=== PATIENT | male | born 1955 | race Caucasian/White ===

== ENCOUNTER → 2018-05-16 | Day surgery (SDC) | payer BC ==
[~2018-05-16] MED LIST: ACET500T68 PO; ASPI-612 PO; CARV3.1210 PO; CARV6.2511 PO; CLOP75TA PO; DOCU100C53 PO; HYDROmorphone 2 MG/ML VIAL IV PRN; IV RINGERS,LACTATED 1000ML 1,000 ML IV SCH; LIDOCAINE 1% PF 2 ML VIAL. ID PRN; LIDOCAINE 2% PF 5 ML VIAL. ONE; LISI5TAB PO; MECL25TA3 PO; MORPHINE SULFATE 2 MG/ML VIAL. IV PRN; OMEP20CA10 PO; OMEP40CA5 PO; ONDANSETRON PF 4 MG/2 ML VIAL. IV PRN; PANT40TA3 PO; PROCHLORPERAZINE 10 MG/2 ML VIAL. IV PRN; PROPOFOL 20 ML IV ONE; SIMV20TA3 PO; fentaNYL PF VIAL 100 MCG/2 ML VIAL IV PRN
[2018-05-16 08:36] VITALS: BP 103/62
== END | disposition home or self-care (01) ==
LOC: SURG 06:55
PROVIDERS: ATTEND Internal Medicine Gastroenterology
DX: Z12.11 Encounter for screening for malignant neoplasm of colon (principal); K57.30 Diverticulosis of large intestine without perforation or abscess without bleeding; K64.0 First degree hemorrhoids; Z86.010 Personal history of colon polyps; I10 Essential (primary) hypertension; E78.5 Hyperlipidemia, unspecified; I25.10 Atherosclerotic heart disease of native coronary artery without angina pectoris; Z86.73 Personal history of transient ischemic attack (TIA), and cerebral infarction without residual deficits; Z72.89 Other problems related to lifestyle; Z79.899 Other long term (current) drug therapy; Z98.52 Vasectomy status; Z95.1 Presence of aortocoronary bypass graft; Z87.891 Personal history of nicotine dependence
CPT/HCPCS: 45378; J2001; J2704

== ENCOUNTER → 2018-05-23 | Outpatient (CLI) | payer OTHER ==
[2018-05-16 08:36] VITALS: BP 103/62
[~2018-05-23] MED LIST changes: -HYDROmorphone 2 MG/ML VIAL IV PRN; -IV RINGERS,LACTATED 1000ML 1,000 ML IV SCH; -LIDOCAINE 1% PF 2 ML VIAL. ID PRN; -LIDOCAINE 2% PF 5 ML VIAL. ONE; -MORPHINE SULFATE 2 MG/ML VIAL. IV PRN; -ONDANSETRON PF 4 MG/2 ML VIAL. IV PRN; -PROCHLORPERAZINE 10 MG/2 ML VIAL. IV PRN; -PROPOFOL 20 ML IV ONE; -fentaNYL PF VIAL 100 MCG/2 ML VIAL IV PRN
--- NOTE | 2018-05-24 08:26 | RAD ---
Examination: MRI of the left elbow without contrast HISTORY: History of left posterior elbow pain after fall COMPARISON: None available Technique: Multiplanar, multisequence MR imaging of the left elbow was performed without contrast. FINDINGS: Examination is very limited due to significant motion artifact which causes artifact. Grossly the attachment of the common extensor tendon, common flexor tendon appear intact. The ulnar collateral ligament ligament is not clearly evident but probably intact given no increased signal. The visualized radial collateral ligamentous complex including the lateral ulnar collateral ligament are likely intact. Minimal elbow joint effusion identified. The attachment of the triceps tendon to the olecranon processes grossly appears intact.. There is increased T2 signal identified in the distal biceps tendon at attachment to the radius likely partial thickness tear with a bicipitoradial bursa distention. The attachment of the brachialis tendon grossly appears intact. The ulnar nerve within the cubital tunnel grossly appears unremarkable. IMPRESSION: 1. Increased T2 signal identified in the distal biceps tendon at its radial attachment likely partial-thickness tear with bicipitoradial bursa distention. 2. Otherwise examination is very limited given significant artifact. Electronically signed by: Cruz Porras MD (05/24/2018 8:23 AM) [id number]
== END | disposition home or self-care (01) ==
LOC: MRI 14:51
PROVIDERS: ATTEND Family Medicine
DX: M25.462 Effusion, left knee (principal)
CPT/HCPCS: 73221

== ENCOUNTER → 2018-06-06 | Outpatient (CLI) | payer OTHER ==
[2018-05-16 08:36] VITALS: BP 103/62
--- NOTE | 2018-06-06 19:49 | RAD ---
MR#: [id number] Date of Study: 06/06/2018 Ordering Physician: DWAYNE DEGROOT, Referring Physician: DWAYNE DEGROOT, Tech: Ming Jimenez MBA, RDMS, RVT, RDCS, RTR APPROVED REPORT Patient Location: OUT-PATIENT Indications PAD VELOCITY AND DOPPLER WAVEFORM ANALYSIS RIGHT cm/secWaveformSeverity LEFT cm/secWaveform Severity dCFA 196.0BiphasicdCFA 180.0Monophasic Prof Fem Art. 38.0BiphasicProf Fem Art. 63.0Biphasic Fem Art Prox. OccludedFem Art Prox. 66.0Biphasic Fem Art Mid. OccludedFem Art Mid. 88.0Monophasic Fem Art Dist. OccludedFem Art Dist. 52.0Monophasic Pop Art(Fossa) OccludedPop Art(AK) 55.0Monophasic STRIKER OUT Prox. 77.0BiphasicPTA Prox. 53.0Monophasic STRIKER OUT Dist. 85.0BiphasicPTA Dist. 53.0Monophasic ZAC Prox. 76.0BiphasicATA Prox. 36.0Monophasic DPA 36BiphasicDPA 39Monophasic Image Findings Grayscale images of the right lower extent B arterial vessels reveals occlusion of the right SFA. The re is moderate diffuse atherosclerotic plaque. Mild elevation of the right common femoral arterial ve locities suggestive of more proximal stenosis. The superficial femoral artery and popliteal artery ap pear to be occluded. There is robust collateralization based on normal velocities in the posterior ti bial and anterior tibial vessels. The peroneal artery is not visualized and likely occluded. There is flow noted in the dorsalis pedis artery. Velocities again are mildly elevated in the left common femoral artery again suggestive of possible m ore proximal stenosis. Normal velocities are identified in the profunda, superficial femoral and popl iteal vessels although they are in a monophasic wave pattern suggestive of adventitial calcification. Below the knee the posterior tibial velocities are within normal limits. There is diminished anterio r tibial velocities suggestive of diffuse disease. The peroneal artery again is not visualized. Critical Notification Critical Value: No <Conclusion> 1. Right SFA and popliteal occlusion. 2. Two-vessel runoff below the knee bilaterally Signed by : Ranjith Yuan, Electronically Approved : 06/06/2018 19:49:04
--- NOTE | 2018-06-06 19:57 | RAD ---
MR#: [id number] Date of Study: 06/06/2018 Ordering Physician: DWAYNE DEGROOT, Referring Physician: DWAYNE DEGROOT, Tech: Ming Jimenez MBA, RDMS, RVT, RDCS, RTR APPROVED REPORT Patient Location: OUT-PATIENT Laterality:Bilateral Indications carotid artery disease Surgery/Intervention Endarterectomy: right Doppler Spectral Velocity Analysis Right Left pCCA 64/8 cm/spCCA 187/17 cm/s mCCA 75/2 cm/smCCA 112/22 cm/s dCCA 59/4 cm/sdCCA 97/22 cm/s Bulb 116/8 cm/sBulb 80/16 cm/s ECA 193/ cm/sECA 196/ cm/s pICA 8/-8 cm/spICA 95/26 cm/s Cam 24/-8 cm/smICA 117/37 cm/s dICA 21/-11 cm/sdICA 92/29 cm/s Vert. 88/ cm/sVert. 171/ cm/s Subcl. 75/ cm/sSubcl. 77/ cm/s ICA/CCA 0.32ICA/CCA 0.63 Findings Grayscale images of the right common carotid, external and internal carotid vessels reveals moderate diffuse atherosclerotic plaque. Spectral waveforms in the common carotid artery are within normal bras[place] its. Flow profile in the right internal carotid artery is suggestive of to and fro flow and severely diminished velocities. This may be related to significant obstructive disease versus more central pat hology such as severe aortic insufficiency although as this is not evident in the left common carotid vessels this may be more isolated right internal disease. There is likely greater than 50% stenosis involving the right external carotid artery. There does not appear to be any clear evidence of subcla vian steal as the vertebral velocity is antegrade and elevated again suggestive likely of greater ketan n 50% stenosis. On the left proximal common carotid artery velocities are elevated suggestive of approximately 50% st enosis. No significant flow limitation is noted in the internal carotid artery with overall 0 to less than 50% stenosis by velocity criteria. The left external carotid velocities are again elevated sugg estive greater than 50% stenosis. The vertebral artery velocities are again elevated suggestive of gr eater than 50% stenosis but there is normal antegrade flow. Critical Notification Critical Value: No <Conclusion> 1. Likely severe diffuse disease involving the right internal carotid artery based on to-and-fro flow and diminished velocities. 2. Likely greater than 50% stenosis involving the bilateral vertebral velocities. 3. No obvious subclavian steal noted or significant subclavian stenosis. 4. Recommend CT angiography of the head and neck vessels for further delineation of vascular anatomy. Signed by : Ranjith Yuan, Electronically Approved : 06/06/2018 19:57:14
== END | disposition home or self-care (01) ==
LOC: US 14:24
PROVIDERS: ATTEND Internal Medicine Cardiovascular Disease
DX: I70.208 Unspecified atherosclerosis of native arteries of extremities, other extremity (principal); I65.21 Occlusion and stenosis of right carotid artery; Z98.890 Other specified postprocedural states; Z87.891 Personal history of nicotine dependence
CPT/HCPCS: 93880; 93925

== ENCOUNTER 2019-01-14 02:34 | Emergency (ER) | payer OTHER ==
[~2019-01-14] VITALS: Ht 177.8 cm; Wt 101.6 kg
[~2019-01-14 02:34] MED LIST changes: +OMEP-229 PO; -OMEP20CA10 PO; +OMEP40CA45 PO; -OMEP40CA5 PO; -PANT40TA3 PO; +PANT40TA77 PO; +SIMV20TA18 PO; -SIMV20TA3 PO
[2019-01-14 02:51] VITALS: BP 159/101
--- NOTE | 2019-01-14 02:58 | PHYS DOC ---
Past Medical History Past Medical History: CAD, CVA, Hypertension Additional Past Medical Histor: brain tumor s/p radiation Past Surgical History: Coronary Bypass Surgery, Tonsillectomy, Other Additional Past Surgical Histo: Fusion C7, right leg graft, left arm graft Alcohol Use: None Drug Use: None Adult General Chief Complaint Chief Complaint: ABDOMINAL PAIN HPI HPI 63-year-old male presents to the emergency department with complaints of abdominal discomfort, he describes as gas. Similar situation one month ago he was seen in the office of his primary care physician's. Patient denies any fever, chills, diarrhea. States last, was normal. He got up around 1 AM states he took some simethicone at that time with no improvement. Given his continued pain he presented the ER for further evaluation. Nothing makes his pain worse, nothing makes his pain better. Review of Systems Review of Systems Constitutional: Denies fever or chills [] Respiratory: Denies cough or shortness of breath [] Cardiovascular: No additional information not addressed in HPI [] GI: + abdominal pain, nausea, no vomiting, bloody stools or diarrhea [] : Denies dysuria or hematuria [] Musculoskeletal: Denies back pain or joint pain [] All other systems were reviewed and found to be within normal limits, except as documented in this note. Current Medications Current Medications Current Medications Medications (Trade) Dose Ordered Sig/Ananth Start Time Stop Time Status Last Admin Dose Admin Dicyclomine HCl (Bentyl) 10 mg 1X ONCE 01/14/19 03:45 01/14/19 03:46 DC 01/14/19 03:49 10 MG Magnesium Citrate (Citroma) 296 ml 1X ONCE 01/14/19 03:45 01/14/19 03:46 DC 01/14/19 03:50 296 ML Allergies Allergies Allergies Coded Allergies Type Severity Reaction Last Updated Verified No Known Drug Allergies 05/16/18 No Physical Exam Physical Exam Constitutional: Well developed, well nourished, no acute distress, non-toxic appearance. [] HENT: Normocephalic, atraumatic, bilateral external ears normal, oropharynx m oist, no oral exudates, nose normal. [] Eyes: PERRLA, EOMI, conjunctiva normal, no discharge. [] Cardiovascular:Heart rate regular rhythm, no murmur [] Lungs & Thorax: Bilateral breath sounds clear to auscultation [] Abdomen: Bowel sounds normal, soft, mild distention, no significant tenderness on exam, no masses, no pulsatile masses. [] Skin: Warm, dry, no erythema, no rash. [] Back: No tenderness, no CVA tenderness. [] Extremities: No tenderness, bilateral lower ext edema [] Neurologic: Alert and oriented X 3, no focal deficits noted. [] Psychologic: Affect normal, judgement normal, mood normal. [] Current Patient Data Vital Signs Vital Signs Date Time Temp Pulse Resp B/P (MAP) Pulse Ox O2 Delivery O2 Flow Rate FiO2 01/14/19 02:51 97.8 76 16 159/101 (120) 99 Room Air 97.8 Lab Values Laboratory Tests Test 01/14/19 02:45 01/14/19 03:10 Urine Collection Type Unknown Urine Color Yellow Urine Clarity Clear Urine pH 6.5 Urine Specific [place] 1.020 Urine Protein Negative mg/dL (NEG-TRACE) Urine Glucose (UA) Negative mg/dL (NEG) Urine Ketones (Stick) Negative mg/dL (NEG) Urine Blood Negative (NEG) Urine Nitrite Negative (NEG) Urine Bilirubin Negative (NEG) Urine Urobilinogen Dipstick 1.0 mg/dL (0.2 mg/dL) Urine Leukocyte Esterase Negative (NEG) Urine RBC Occ /HPF (0-2) Urine WBC Occ /HPF (0-4) Urine Squamous Epithelial Cells Occ /LPF Urine Bacteria 0 /HPF (0-FEW) Urine Hyaline Casts Occasional /HPF Urine Mucus Mod /LPF White Blood Count 8.0 x10^3/uL (4.0-11.0) Red Blood Count 5.20 x10^6/uL (4.30-5.70) Hemoglobin 14.8 g/dL (13.0-17.5) Hematocrit 44.3 % (39.0-53.0) Mean Corpuscular Volume 85 fL (79-100) Mean Corpuscular Hemoglobin 29 pg (25-35) Mean Corpuscular Hemoglobin Concent 34 g/dL (31-37) Red Cell Distribution Width 13.7 % (11.5-14.5) Platelet Count 162 x10^3/uL (140-400) Neutrophils (%) (Auto) 73 % (31-73) Lymphocytes (%) (Auto) 16 % (24-48) L Monocytes (%) (Auto) 9 % (0-9) Eosinophils (%) (Auto) 2 % (0-3) Basophils (%) (Auto) 0 % (0-3) Neutrophils # (Auto) 5.8 x10^3/uL (1.8-7.7) Lymphocytes # (Auto) 1.2 x10^3/uL (1.0-4.8) Monocytes # (Auto) 0.7 x10^3/uL (0.0-1.1) Eosinophils # (Auto) 0.1 x10^3/uL (0.0-0.7) Basophils # (Auto) 0.0 x10^3/uL (0.0-0.2) Sodium Level 145 mmol/L (136-145) Potassium Level 3.9 mmol/L (3.5-5.1) Chloride Level 109 mmol/L (98-107) H Carbon Dioxide Level 27 mmol/L (21-32) Anion Gap 9 (6-14) Blood Urea Nitrogen 21 mg/dL (8-26) Creatinine 1.3 mg/dL (0.7-1.3) Estimated GFR (Cockcroft-Gault) 55.4 BUN/Creatinine Ratio 16 (6-20) Glucose Level 108 mg/dL (70-99) H Calcium Level 8.6 mg/dL (8.5-10.1) Total Bilirubin 0.4 mg/dL (0.2-1.0) Aspartate Amino Transferase (AST) 19 U/L (15-37) Alanine Aminotransferase (ALT) 28 U/L (16-63) Alkaline Phosphatase 111 U/L (46-116) Troponin I Quantitative < 0.017 ng/mL (0.000-0.055) Total Protein 6.9 g/dL (6.4-8.2) Albumin 3.6 g/dL (3.4-5.0) Albumin/Globulin Ratio 1.1 (1.0-1.7) Lipase 135 U/L (73-393) Laboratory Tests 01/14/19 03:10 Laboratory Tests 01/14/19 03:10 EKG EKG Reviewed, normal sinus rhythm, heart rate 74, left axis deviation, no evidence of ST elevation MD, interpretation time 0308[] Radiology/Procedures Radiology/Procedures [] Course & Med Decision Making Course & Med Decision Making Pertinent Labs and Imaging studies reviewed. (See chart for details) []63-year-old male presents to the emergency department with complaints of abdominal discomfort, he describes as gas. Similar situation one month ago he was seen in the office of his primary care physician's. Patient denies any fever, chills, diarrhea. States last, was normal. He got up around 1 AM states he took some simethicone at that time with no improvement. Given his continued pain he presented the ER for further evaluation. Nothing makes his pain worse, nothing makes his pain better. Labs/Imaging reviewed No evidence of acute infectious process KUB with large amounts of colonic stool Discussed use of bentyl 10mg po x 1 and mag citrate to help facilitate Trop negative Dragon Disclaimer Dragon Disclaimer This electronic medical record was generated, in whole or in part, using a voice recognition dictation system. Departure Departure Impression: Primary Impression: Constipation Disposition: 01 HOME, SELF-CARE Condition: STABLE Referrals: MARTIN EDWARDS MD (PCP) Patient Instructions: Constipation, Adult, [id number] Additional Instructions: Recommend follow up with PCP 3 - 5 days Return to the ER with worsening symptoms, intractable pain, fever, altered mental status Tylenol/Motrin as needed for pain Take new medication as prescribed Problem Qualifiers Primary Impression: Constipation Constipation type: unspecified constipation type Qualified Codes: K59.00 - Constipation, unspecified IRMA SOLORZANO MD Jan 14, 2019 02:58
[2019-01-14 03:15] LABS: BILIRUBIN,URINE NEGATIVE (NEG); CLARITY,URINE CLEAR; COLOR,URINE YELLOW; NITRITE,URINE NEGATIVE (NEG); PH,URINE 6.5; PROTEIN,URINE NEGATIVE (NEG-TRACE)
[2019-01-14 03:23] LABS: BACTERIA,URINE 0 /HPF (0-FEW); HYALINE CASTS, URINE OCCASIONAL /HPF; RBC,URINE OCC /HPF (0-2); SQUAMOUS EPITHELIAL CELL,UR OCC /LPF; WBC,URINE OCC /HPF (0-4)
--- NOTE | 2019-01-14 03:23 | RAD ---
EXAM: Supine AP view of the abdomen DATE: 01/14/2019 2:49 AM INDICATION: Abdominal pain COMPARISON: No Prior FINDINGS: No abnormal small or large bowel dilatation. Moderate colonic stool content. No abnormal soft tissue mass effect. No suspicious calcifications are seen. Evaluation for free intraperitoneal gas is limited on this supine exam. Right iliac stent is seen. Bilateral hip joint degenerative changes with prominent left acetabular subchondral cysts. IMPRESSION: 1. No evidence for bowel obstruction. 2. Moderate colonic stool content. Electronically signed by: Isai Cuevas MD (01/14/2019 3:20 AM) [facility]
[2019-01-14 03:25] LABS: BASO % 0 % (0-3); EOS # 0.1 x10^3/uL (0.0-0.7); EOS % 2 % (0-3); HEMATOCRIT 44.3 % (39.0-53.0); HEMOGLOBIN 14.8 g/dL (13.0-17.5); LYMPH # 1.2 x10^3/uL (1.0-4.8); LYMPH % 16 % (24-48); MEAN CORPUSCULAR HEMOGLOBIN 29 pg (25-35); MEAN CORPUSCULAR HGB CONC 34 g/dL (31-37); MEAN CORPUSCULAR VOLUME 85 fL (79-100); MONO # 0.7 x10^3/uL (0.0-1.1); MONO % 9 % (0-9); NEUT # 5.8 x10^3/uL (1.8-7.7); NEUT % 73 % (31-73); PLATELET COUNT 162 x10^3/uL (140-400); RED CELL DISTRIBUTION WIDTH 13.7 % (11.5-14.5)
[2019-01-14 03:30] LABS: CALCIUM 8.6 mg/dL (8.5-10.1); CREATININE 1.3 mg/dL (0.7-1.3); GFR 55.4; POTASSIUM 3.9 mmol/L (3.5-5.1)
[2019-01-14 03:36] LABS: ALBUMIN 3.6 g/dL (3.4-5.0); ALBUMIN/GLOBULIN RATIO 1.1 (1.0-1.7); TOTAL BILIRUBIN 0.4 mg/dL (0.2-1.0); TOTAL PROTEIN 6.9 g/dL (6.4-8.2)
[2019-01-14] MEDS ORDERED: MAGNESIUM CITRATE 296 ML SOLUTION. PO ONE (03:45)
[2019-01-14] MEDS ORDERED: DICYCLOMINE HCL 10 MG CAPSULE PO ONE (03:45)
--- NOTE | 2019-01-14 07:34 | EKG ---
[facility] [address] [place] [address] Test Date: 2019-01-14 Test Time: 03:08:57 Pat Name: OSMAN STEWART Department: Room: Gender: M [place]: : 1955 Requested By: IRMA SOLORZANO Order Number: [id number] Reading MD: Measurements Intervals [place] Rate: 74 P: 10 SD: 164 QRS: -15 QRSD: 98 T: 47 QT: 376 QTc: 422 Interpretive Statements SINUS RHYTHM LEFT ATRIAL ABNORMALITY LEFTWARD AXIS LEFT VENTRICULAR HYPERTROPHY QRS(T) CONTOUR ABNORMALITY CONSIDER ANTEROSEPTAL MYOCARDIAL DAMAGE ABNORMAL ECG RI6.01 No previous ECG available for comparison
== END 2019-01-14 04:07 | disposition home or self-care (01) ==
LOC: ER 02:34
DX: K59.00 Constipation, unspecified (principal); R14.0 Abdominal distension (gaseous); I10 Essential (primary) hypertension; I25.10 Atherosclerotic heart disease of native coronary artery without angina pectoris; Z86.73 Personal history of transient ischemic attack (TIA), and cerebral infarction without residual deficits; Z95.1 Presence of aortocoronary bypass graft
CPT/HCPCS: 36415; 74018; 80053; 81001; 83690; 84484; 85025; 93005; 99285-25

== ENCOUNTER 2019-01-22 10:00 | Emergency (ER) | payer OTHER ==
[~2019-01-22] VITALS: Ht 177.8 cm; Wt 101.6 kg
--- NOTE | 2019-01-22 10:51 | PHYS DOC ---
Past Medical History Past Medical History: CAD, CVA, Hypertension Additional Past Medical Histor: brain tumor s/p radiation Past Surgical History: Coronary Bypass Surgery, Tonsillectomy, Other Additional Past Surgical Histo: Fusion C7, right leg graft, left arm graft Alcohol Use: Rarely Drug Use: None Adult General Chief Complaint Chief Complaint: ABDOMINAL PAIN HPI HPI Patient is a 63 y/o WM who presents to the ED for evaluation. He states " I was told I need a surgeon and Dr Varela office, my PCP, couldn't see me". Patient was seen in the emergency department here with abdominal pain on 01/14, notes and imaging tests from that report have been reviewed, and have the patient's labs. The patient states that on Monday he began having some abdominal pain, and went to the [facility] at the [facility]. He underwent a CT scan, and states she was transferred to the [facility], because he was told he needed gallbladder surgery. He underwent an ultrasound at the facility, and met with the surgeon. However, because he was apparently out of network, with his insurance, he was told that he would not be getting surgery at that facility and was told to follow-up with his primary care doctor to arrange for outpatient care. He was also told to be careful about his diet. He went to see his PCPs office today, to try and arrange surgical referral, but they could not see him, so he presents to the emergency department. He is NOT having any abdominal pain at this time, and is currently asymptomatic. He has not had any nausea, or vomiting. There are no alleviating or exacerbating factors to his symptoms. Records from [facility] have been requested. Review of Systems Review of Systems Constitutional: Denies fever or chills [] Eyes: Denies change in visual acuity, redness, or eye pain [] HENT: Denies nasal congestion or sore throat [] Respiratory: Denies cough or shortness of breath [] Cardiovascular: The patient denies any shortness of breath, chest pain, palpitations, or orthopnea [] GI: Denies current abdominal pain, nausea, vomiting, bloody stools or diarrhea [] : Denies dysuria or hematuria [] Musculoskeletal: Denies back pain or joint pain [] Integument: Denies rash or skin lesions [] Neurologic: Denies headache, focal weakness or sensory changes [] Endocrine: Denies polyuria or polydipsia [] All other systems were reviewed and found to be within normal limits, except as documented in this note. Allergies Allergies Allergies Coded Allergies Type Severity Reaction Last Updated Verified No Known Drug Allergies 05/16/18 No Physical Exam Physical Exam PHYSICAL EXAM: CONSTITUTIONAL: Well developed, well nourished HEAD: normocephalic, atraumatic EENT: PERRL, EOMI. Conjunctivae normal color, sclerae non-icteric; moist mucous membranes. NECK: Supple, non-tender; no meningismus. LUNGS: Lungs CTA, breathing even and unlabored. Normal air movement. HEART: Regular rate and rhythm, no murmur CHEST: No deformity; non-tender ABDOMEN: The abdomen is soft, there is mild diffuse right-sided tenderness to palpation, without focal tenderness, rebound, or guarding, Hernandez sign is absent, no masses or bruits. EXTREM: Normal ROM; no deformity, no calf tenderness. Normal pulses palpable in all extremities. There is no pedal edema. SKIN: No rash; no diaphoresis NEURO: Alert; normal speech and cognition; CN's grossly intact; strength grossly intact without focal deficit. BACK: No CVA TTP. Current Patient Data Vital Signs Vital Signs Date Time Temp Pulse Resp B/P (MAP) Pulse Ox O2 Delivery O2 Flow Rate FiO2 01/22/19 10:31 97.6 77 18 107/72 (84) 97 Room Air 97.6 Lab Values Laboratory Tests Test 01/22/19 10:49 01/22/19 11:10 Urine Collection Type Unknown Urine Color Yellow Urine Clarity Clear Urine pH 6.0 Urine Specific [place] 1.015 Urine Protein Negative mg/dL (NEG-TRACE) Urine Glucose (UA) Negative mg/dL (NEG) Urine Ketones (Stick) Negative mg/dL (NEG) Urine Blood Trace (NEG) Urine Nitrite Negative (NEG) Urine Bilirubin Negative (NEG) Urine Urobilinogen Dipstick 0.2 mg/dL (0.2 mg/dL) Urine Leukocyte Esterase Negative (NEG) Urine RBC Occ /HPF (0-2) Urine WBC Occ /HPF (0-4) Urine Squamous Epithelial Cells Occ /LPF Urine Bacteria Few /HPF (0-FEW) Urine Hyaline Casts Occasional /HPF Urine Mucus Marked /LPF White Blood Count 8.0 x10^3/uL (4.0-11.0) Red Blood Count 5.50 x10^6/uL (4.30-5.70) Hemoglobin 15.7 g/dL (13.0-17.5) Hematocrit 46.6 % (39.0-53.0) Mean Corpuscular Volume 85 fL (79-100) Mean Corpuscular Hemoglobin 29 pg (25-35) Mean Corpuscular Hemoglobin Concent 34 g/dL (31-37) Red Cell Distribution Width 13.8 % (11.5-14.5) Platelet Count 174 x10^3/uL (140-400) Neutrophils (%) (Auto) 68 % (31-73) Lymphocytes (%) (Auto) 20 % (24-48) L Monocytes (%) (Auto) 9 % (0-9) Eosinophils (%) (Auto) 3 % (0-3) Basophils (%) (Auto) 0 % (0-3) Neutrophils # (Auto) 5.4 x10^3/uL (1.8-7.7) Lymphocytes # (Auto) 1.6 x10^3/uL (1.0-4.8) Monocytes # (Auto) 0.7 x10^3/uL (0.0-1.1) Eosinophils # (Auto) 0.2 x10^3/uL (0.0-0.7) Basophils # (Auto) 0.0 x10^3/uL (0.0-0.2) Sodium Level 142 mmol/L (136-145) Potassium Level 4.2 mmol/L (3.5-5.1) Chloride Level 106 mmol/L (98-107) Carbon Dioxide Level 27 mmol/L (21-32) Anion Gap 9 (6-14) Blood Urea Nitrogen 12 mg/dL (8-26) Creatinine 1.2 mg/dL (0.7-1.3) Estimated GFR (Cockcroft-Gault) 60.8 BUN/Creatinine Ratio 10 (6-20) Glucose Level 103 mg/dL (70-99) H Calcium Level 9.0 mg/dL (8.5-10.1) Total Bilirubin 0.4 mg/dL (0.2-1.0) Aspartate Amino Transferase (AST) 21 U/L (15-37) Alanine Aminotransferase (ALT) 29 U/L (16-63) Alkaline Phosphatase 121 U/L (46-116) H Total Protein 7.6 g/dL (6.4-8.2) Albumin 3.7 g/dL (3.4-5.0) Albumin/Globulin Ratio 0.9 (1.0-1.7) L Lipase 100 U/L (73-393) Laboratory Tests 01/22/19 11:10 Laboratory Tests 01/22/19 11:10 EKG EKG [] Radiology/Procedures Radiology/Procedures [] Course & Med Decision Making Course & Med Decision Making Pertinent Labs and Imaging studies reviewed. (See chart for details) []12:25 PM: Patient's condition remains stable. I reviewed records obtained from [facility]. He had an abnormal CT scan, but a follow-up ultrasound showed a contracted gallbladder with no significant pathology in the gallbladder. He is pain-free at this time. I discussed the case briefly with Dr. Velasco, who will see the patient in follow-up. The patient might benefit from a GI evaluation as well and will be given appropriate referrals. I discussed importance of close follow-up and return precautions, he will be provided a copy of his records to bring to the surgeon in follow-up. Dragon Disclaimer Dragon Disclaimer This electronic medical record was generated, in whole or in part, using a voice recognition dictation system. Departure Departure Impression: Primary Impression: Abdominal pain Disposition: 01 HOME, SELF-CARE Condition: STABLE Referrals: MARTIN EDWARDS MD (PCP) MILTON ESTEBAN MD, MICHAEL F MD Patient Instructions: Abdominal Pain, Biliary Colic, Gastritis, Adult Additional Instructions: Take Pepcid AC twice daily, to see if this may help improve your symptoms. ARGENTINA SAN MD Jan 22, 2019 10:51
[2019-01-22 11:10] LABS: BILIRUBIN,URINE NEGATIVE (NEG); CLARITY,URINE CLEAR; COLOR,URINE YELLOW; NITRITE,URINE NEGATIVE (NEG); PROTEIN,URINE NEGATIVE (NEG-TRACE); UROBILINOGEN,URINE 0.2 mg/dL (0.2 mg/dL)
[2019-01-22 11:16] LABS: BACTERIA,URINE FEW /HPF (0-FEW); WBC,URINE OCC /HPF (0-4)
[2019-01-22 11:17] LABS: HYALINE CASTS, URINE OCCASIONAL /HPF; RBC,URINE OCC /HPF (0-2); SQUAMOUS EPITHELIAL CELL,UR OCC /LPF
[2019-01-22 11:20] LABS: BASO % 0 % (0-3); EOS # 0.2 x10^3/uL (0.0-0.7); EOS % 3 % (0-3); HEMATOCRIT 46.6 % (39.0-53.0); HEMOGLOBIN 15.7 g/dL (13.0-17.5); LYMPH # 1.6 x10^3/uL (1.0-4.8); LYMPH % 20 % (24-48); MEAN CORPUSCULAR HEMOGLOBIN 29 pg (25-35); MEAN CORPUSCULAR HGB CONC 34 g/dL (31-37); MEAN CORPUSCULAR VOLUME 85 fL (79-100); MONO # 0.7 x10^3/uL (0.0-1.1); MONO % 9 % (0-9); NEUT # 5.4 x10^3/uL (1.8-7.7); NEUT % 68 % (31-73); PLATELET COUNT 174 x10^3/uL (140-400); RED CELL DISTRIBUTION WIDTH 13.8 % (11.5-14.5)
[2019-01-22 11:41] LABS: CREATININE 1.2 mg/dL (0.7-1.3); GFR 60.8; POTASSIUM 4.2 mmol/L (3.5-5.1)
[2019-01-22 11:45] LABS: ALBUMIN 3.7 g/dL (3.4-5.0); ALBUMIN/GLOBULIN RATIO 0.9 (1.0-1.7); TOTAL BILIRUBIN 0.4 mg/dL (0.2-1.0); TOTAL PROTEIN 7.6 g/dL (6.4-8.2)
[2019-01-22 12:30] VITALS: BP 148/71
== END 2019-01-22 13:00 | disposition home or self-care (01) ==
LOC: ER 10:00
DX: R10.84 Generalized abdominal pain (principal); I10 Essential (primary) hypertension; I25.10 Atherosclerotic heart disease of native coronary artery without angina pectoris; Z86.73 Personal history of transient ischemic attack (TIA), and cerebral infarction without residual deficits; Z95.1 Presence of aortocoronary bypass graft
CPT/HCPCS: 36415; 80053; 81001; 83690; 85025; 99284

== ENCOUNTER 2019-02-11 08:00 | Day surgery (SDC) | payer OTHER ==
[~2019-02-11] VITALS: Ht 182.9 cm; Wt 100.5 kg
[~2019-02-11 08:00] MED LIST changes: +ATOR40TA PO; +BUPIVACAINE-EPI 0.5%-1:200000 MPF 30 ML VIAL. INJ ONE; +HYDROmorphone 2 MG/ML VIAL IV PRN; +IV RINGERS,LACTATED 1000ML 1,000 ML IV SCH; +LIDOCAINE 1% PF 2 ML VIAL. ID PRN; +MORPHINE SULFATE 2 MG/ML VIAL. IV PRN; +MULT-245 PO; +ONDANSETRON PF 4 MG/2 ML VIAL. IV PRN; +PROCHLORPERAZINE 10 MG/2 ML VIAL. IV PRN; +TAMS0.4C97 PO; +fentaNYL PF VIAL 100 MCG/2 ML VIAL IV PRN
[2019-02-11] MEDS ORDERED: SURGICEL HEMOSTAT 4X8 EACH. ONE (09:15)
[2019-02-11] MEDS ORDERED: GLUCAGON,HUMAN RECOMBINANT 1 MG/ML VIAL. ONE (09:15)
[2019-02-11] MEDS ORDERED: IOHEXOL 300 MG/ML 50 ML VIAL. ONE (09:15)
[2019-02-11] MEDS ORDERED: LIDOCAINE 2% PF 5 ML VIAL. ONE (09:53)
[2019-02-11] MEDS ORDERED: PHENYLEPHRINE in 0.9% NACL PF 1 MG/10 ML SYRINGE. IV ONE (09:53)
[2019-02-11] MEDS ORDERED: DEXAMETHASONE SOD PHOS 4 MG/ML VIAL ONE (09:53)
[2019-02-11] MEDS ORDERED: DESFLURANE 31 TO 60 MINUTES IH ONE (09:53)
[2019-02-11] MEDS ORDERED: ONDANSETRON PF 4 MG/2 ML VIAL. ONE (09:53)
[2019-02-11] MEDS ORDERED: PROPOFOL 20 ML IV ONE (09:53)
[2019-02-11] MEDS ORDERED: fentaNYL PF VIAL 100 MCG/2 ML VIAL ONE (09:54)
[2019-02-11] MEDS ORDERED: ceFAZolin 2GM PREMIX 2 GM/50 ML BAG IV ONE (10:00)
[2019-02-11] MEDS ORDERED: GLYCOPYRROLATE 1 MG/5 ML VIAL. ONE (10:03)
[2019-02-11] MEDS ORDERED: NEOSTIGMINE METHYLSULFATE 5 MG/5 ML SYRINGE. ONE (10:03)
--- NOTE | 2019-02-11 10:29 | RAD ---
EXAM: Intraoperative cholangiogram. HISTORY: Cholecystectomy. COMPARISON: None. FINDINGS: 2 fluoroscopic images were obtained during an intraoperative cholangiogram. The total fluoroscopy time is 0.4 minutes. There is contrast opacification of the biliary tree and proximal duodenum. No retained stone is seen. IMPRESSION: Intraoperative cholangiogram without evidence of a retained stone. Electronically signed by: Radha Hutchinson MD (02/11/2019 10:27 AM) [facility]
--- NOTE | 2019-02-11 10:41 | DISCH ---
DISCHARGE INSTRUCTIONS Condition on Discharge Condition on Discharge: Stable Activity After Discharge Activity Instructions for Disc: Activity as tolerated, Avoid exertion, Other, see below Driving Instructions after Dis: Do not drive (3-4 days) Diet after Discharge Diet after Discharge: Cardiac Wound Incision Care Wound/Incision Care: Ice to area for comfort Other wound/incision instructi: june shower Monday Checks after Discharge Checks after discharge: Check blood press - daily Follow-Up Follow up with: Julio next week KARIME RESENDEZ MD Feb 11, 2019 10:41
--- NOTE | 2019-02-11 10:56 | PDOC ---
BRIEF OPERATIVE NOTE Date: Feb 11, 2019 Pre-Op Diagnosis symptomatic cholelithiasis Post-Op Diagnosis same Procedure Performed l/s dewey with grams Surgeon Julio Rigging Supervisor Jesica GOODSON Anesthesia Type: General Blood Loss 10cc IV Fluid 800cc Specimens Obtained GB Findings supple GB, some cirrhotic liver changes Complications none Operative Note Wk # [id number] KARIME RESENDEZ MD Feb 11, 2019 10:56
[2019-02-11] MEDS ORDERED: DOCU50CA9 PO (11:09)
[2019-02-11] MEDS ORDERED: HYDR-3164 PO (11:10)
[2019-02-11] MEDS ORDERED: HYDROcodone/APAP 5/325MG 1 TAB TABLET PO PRN (11:15)
--- NOTE | 2019-02-11 11:31 | OP ---
DATE OF SURGERY: 02/11/2019 PREOPERATIVE DIAGNOSIS: Symptomatic cholelithiasis. POSTOPERATIVE DIAGNOSIS: Symptomatic cholelithiasis. PROCEDURE: Laparoscopic cholecystectomy with cholangiogram. SURGEON: Dennis Resendez MD INSOLE STIFFENER: HAMZAH Power. ANESTHESIA: General endotracheal. ESTIMATED BLOOD LOSS: 10 mL. INTRAVENOUS FLUIDS: 800 mL. DESCRIPTION OF PROCEDURE: The patient brought to the operating suite, given a general endotracheal anesthetic and the abdomen prepped and draped in usual sterile fashion. A supraumbilical incision was infiltrated with local anesthetic, incised, and a 5-mm Visiport used to safely gain access into the abdominal cavity, taking care to avoid injury to abdominal contents. Pneumoperitoneum established. Camera inserted and inspection carried out with results as noted above. With the table in reverse Trendelenburg rolled to the left, the epigastric, midclavicular, and lateral ports were placed under direct vision. The gallbladder was retracted superolaterally and the cystic duct and cystic artery were identified. The duct was clipped on the gallbladder side. Cholangiograms were made. These were normal. In light of this, the catheter was removed. The cystic duct was clipped x 3 and divided, taking care to avoid injury or compromise the common duct. Cystic artery was clipped and divided and the gallbladder freed from the bed with cautery dissection and placed in an EndoCatch bag. Hemostasis was obtained in the fossa with cautery and a small piece of Surgicel. No bleeding or evidence of bile leak was seen at completion. Table returned to level. Gallbladder delivered through the epigastric incision. Epigastric incision closed with interrupted 0 Vicryl suture. Intra-abdominal pressure decreased to 6 cm of water. No bleeding from the epigastric closure or from the midclavicular or lateral port sites after their removal. Abdomen decompressed, camera slowly removed, no bleeding seen. Skin incisions closed with subcuticular 4-0 Monocryl. Steri-Strips and sterile dressings applied. The patient was awakened from his anesthetic and taken to the recovery room in satisfactory condition. DENNIS RESENDEZ MD DR: MAUREEN/yevgeniy JOB#: [id number] / [id number]
[2019-02-11 11:45] VITALS: BP 116/50
--- NOTE | 2019-02-12 18:06 | PATHOLOGY ---
[facility] Accession Number: [id number] . 01 Material submitted: . gallbladder - GALLBLADDER . 01 Clinical history: . Symptomatic cholelithiasis . 02 Diagnosis: Gallbladder, laparoscopic cholecystectomy: - Chronic cholecystitis. ([facility] 02/12/2019) [facility] 02/12/2019 1526 Local . 02 Comment: There are no calculi identified within the gallbladder lumen or specimen container. There is no evidence of malignancy. ([facility] 02/12/2019) . 02 Electronically signed: . Godfrey Delaney MD, Pathologist NPI- [id number] . 01 Gross description: . The specimen is received in formalin labeled "Pierre, Noé, gallbladder" and consists of an intact pink-quinn smooth shiny gallbladder measuring 6.9 x 2.0 x 1.4 cm. The margin is inked black. Opening reveals a lumen filled with viscous green bile and no calculi. The mucosa is brown and velvety with a few scattered yellow flecks and an average wall thickness of 0.1 cm. No masses are identified. Senior Controls Engineer sections are submitted in A1. ([facility]; 02/11/2019) SYU/SYU 02/11/2019 1650 Local . 02 Pathologist provided ICD-10: K81.1 . 02 CPT . 644921 Specimen Comment: A courtesy copy of this report has been sent to [phone] Specimen Comment: Report sent to / DR EDWARDS Performed at: 01 [facility] [address], [place] [id number] MD Clayton Jon MD Phone: [phone] Performed at: 02 [facility] [address] [place], [place] [id number] MD Godfrey Delaney MD Phone: [phone]
== END 2019-02-11 12:18 | disposition hospice, home (50) ==
LOC: SURG 08:00
PROVIDERS: ATTEND Surgery
DX: K80.10 Calculus of gallbladder with chronic cholecystitis without obstruction (principal); E78.00 Pure hypercholesterolemia, unspecified; I10 Essential (primary) hypertension; I25.2 Old myocardial infarction; I25.10 Atherosclerotic heart disease of native coronary artery without angina pectoris; J44.9 Chronic obstructive pulmonary disease, unspecified; K21.9 Gastro-esophageal reflux disease without esophagitis; E66.9 Obesity, unspecified; Z68.30 Body mass index [BMI] 30.0-30.9, adult; Z86.73 Personal history of transient ischemic attack (TIA), and cerebral infarction without residual deficits; Z95.1 Presence of aortocoronary bypass graft; Z95.5 Presence of coronary angioplasty implant and graft; Z87.891 Personal history of nicotine dependence; Z87.39 Personal history of other diseases of the musculoskeletal system and connective tissue; Z72.89 Other problems related to lifestyle; Z98.890 Other specified postprocedural states
CPT/HCPCS: 47563; 74300; A7015; J1100; J2001; J2370; J2405; J2704; J2710; J3010; J3490; J7030; Q9967; J0696; J1610